=== PATIENT | female | born 1955 | race Caucasian/White ===

== ENCOUNTER 2016-10-28 11:06 | Emergency (ER) | payer OTHER ==
[~2016-10-28] VITALS: Ht 167.6 cm; Wt 54.4 kg
[~2016-10-28 11:06] MED LIST: PERCOCET; XANAX
[2016-10-28] MEDS ORDERED: HYDROCODONE/APAP 5-325MG TABLET PO ONE (11:30)
[2016-10-28] MEDS ORDERED: HYDROCODONE/APAP 5-325MG TABLET ONE (11:34)
--- NOTE | 2016-10-28 11:38 | NUR ---
Patient discharged to home in stable conditon. Written and verbal after care instructions given to patient. Patient verbalizes understanding of instructions.
[2016-10-28] MEDS ORDERED: TDAP DIPH,PERTUSS,TET VAC/PF 0.5 ML DISP.SYRIN IM ONE ×2 (11:39→11:45)
== END 2016-10-28 11:41 | disposition home or self-care (01) ==
LOC: ER 11:08
DX: S51.851A Open bite of right forearm, initial encounter (principal); J44.9 Chronic obstructive pulmonary disease, unspecified; W54.0XXA Bitten by dog, initial encounter; X58.XXXA Exposure to other specified factors, initial encounter; Y93.89 Activity, other specified; Y92.9 Unspecified place or not applicable; Y99.9 Unspecified external cause status
CPT/HCPCS: 90471; 90715; 99283; A4217; A4663

== ENCOUNTER 2016-10-29 17:57 | Emergency (ER) | payer OTHER ==
[~2016-10-29] VITALS: Ht 162.6 cm; Wt 56.7 kg
[2016-10-29] MEDS ORDERED: VANCOMYCIN IV 1,000 MG in IV DEXTROSE 5% 250 ML IV ONE (18:45)
[2016-10-29] MEDS ORDERED: PIPERACILLIN SODIUM/TAZOBACTAM 3.375 G in IV DEXTROSE 5% 50 ML IV ONE (18:45)
[2016-10-29] MEDS ORDERED: PIPERACILLIN/TAZOBACTAM/D5W 50 ML IV ONE (19:07)
[2016-10-29] MEDS ORDERED: diphenhydrAMINE 50 MG/1 ML VIAL IV ONE (19:30)
[2016-10-29] MEDS ORDERED: diphenhydrAMINE 50 MG/1 ML VIAL ONE (19:33)
[2016-10-29] MEDS ORDERED: VANCOMYCIN IV 200 ML ONE (20:06)
[2016-10-29] MEDS ORDERED: CLINDAMYCIN HCL 150 MG CAPSULE PO ONE (20:15)
[2016-10-29] MEDS ORDERED: LEVOFLOXACIN 750 MG TABLET PO ONE (20:15)
[2016-10-29] MEDS ORDERED: LEVOFLOXACIN 750 MG TABLET ONE (20:28)
[2016-10-29] MEDS ORDERED: CLINDAMYCIN HCL 300 MG CAPSULE ONE (20:29)
--- NOTE | 2016-10-29 21:24 | NUR ---
Patient discharged to home in stable conditon. Written and verbal after care instructions given. Patient verbalizes understanding of instructions. Ambulated from [facility] with stable gait. All belongings with patient.
[2016-10-29 21:27] VITALS: BP 131/75
== END 2016-10-29 21:28 | disposition home or self-care (01) ==
LOC: ER 18:07
DX: L03.113 Cellulitis of right upper limb (principal); F41.9 Anxiety disorder, unspecified; J44.9 Chronic obstructive pulmonary disease, unspecified; Z88.2 Allergy status to sulfonamides; Z88.1 Allergy status to other antibiotic agents
CPT/HCPCS: A4663; J1200; J2543; J3370

== ENCOUNTER 2016-10-30 22:50 | Emergency (ER) | payer OTHER ==
[~2016-10-30] VITALS: Ht 162.6 cm; Wt 56.7 kg
--- NOTE | 2016-10-31 00:34 | NUR ---
Patient discharged to home in stable conditon. Written and verbal after care instructions given. Patient verbalizes understanding of instructions.
== END 2016-10-31 00:35 | disposition home or self-care (01) ==
LOC: ER 22:50
DX: S51.851D Open bite of right forearm, subsequent encounter (principal); W54.0XXD Bitten by dog, subsequent encounter; F41.9 Anxiety disorder, unspecified; J44.9 Chronic obstructive pulmonary disease, unspecified; Z88.2 Allergy status to sulfonamides; Z88.1 Allergy status to other antibiotic agents
CPT/HCPCS: 99281; A4663

== ENCOUNTER 2016-12-16 11:39 | Emergency (ER) | payer OTHER ==
[~2016-12-16] VITALS: Ht 172.7 cm; Wt 64.4 kg
[2016-12-16] MEDS ORDERED: HYDROCODONE/APAP 5-325MG TABLET PO ONE (12:30)
[2016-12-16] MEDS ORDERED: HYDROCODONE/APAP 5-325MG TABLET ONE (12:51)
--- NOTE | 2016-12-16 14:24 | NUR ---
Patient discharged to home in stable conditon. Written and verbal after care instructions given. Patient verbalizes understanding of instructions.
== END 2016-12-16 14:25 | disposition home or self-care (01) ==
LOC: ER 11:39
DX: S93.402A Sprain of unspecified ligament of left ankle, initial encounter (principal); S93.602A Unspecified sprain of left foot, initial encounter; F41.9 Anxiety disorder, unspecified; J44.9 Chronic obstructive pulmonary disease, unspecified; Z88.2 Allergy status to sulfonamides; Z88.1 Allergy status to other antibiotic agents; W17.2XXA Fall into hole, initial encounter; Y93.89 Activity, other specified; Y99.8 Other external cause status; Y92.89 Other specified places as the place of occurrence of the external cause
CPT/HCPCS: 73610; 73630; A4663

== ENCOUNTER 2017-01-13 11:00 | Emergency (ER) | payer OTHER ==
[~2017-01-13] VITALS: Ht 162.6 cm; Wt 56.7 kg
--- NOTE | 2017-01-13 11:23 | NUR ---
dr esteban at the bedside for eval and exam.
--- NOTE | 2017-01-13 12:15 | NUR ---
Patient discharged to home in stable conditon. Written and verbal after care instructions given. Patient verbalizes understanding of instructions.
[2017-01-13 12:17] VITALS: BP 112/85
== END 2017-01-13 12:18 | disposition home or self-care (01) ==
LOC: ER 11:00
DX: S90.32XA Contusion of left foot, initial encounter (principal); F41.9 Anxiety disorder, unspecified; J44.9 Chronic obstructive pulmonary disease, unspecified; Z88.2 Allergy status to sulfonamides; Z88.1 Allergy status to other antibiotic agents; X58.XXXA Exposure to other specified factors, initial encounter; Y93.89 Activity, other specified; Y99.8 Other external cause status; Y92.89 Other specified places as the place of occurrence of the external cause
CPT/HCPCS: 73610; 73650; A4663